=== PATIENT | male | born 1955 | race African-American/Black ===

== ENCOUNTER 2019-03-19 07:47 | Inpatient (IN) | payer MEDICAID ==
[2019-03-19 08:26] LABS: Basophils % (Auto) 0.6 % (0.0-1.8); Eosinophils % (Auto) 0.8 % (0.0-4.3); Hematocrit 40.4 % (35.5-45.6); Hemoglobin 13.7 gm/dl (11.8-15.2); Lymphocytes # (Auto) 1.4 K/mm3 (1.2-5.4); Mean Corpuscular HGB Conc 34 % (32-34); Mean Corpuscular Volume 84 fl (84-94); Monocytes # (Auto) 0.4 K/mm3 (0.0-0.8); Monocytes % (Auto) 7.6 % (0.0-7.3); Platelet Count 244 K/mm3 (140-440); Red Blood Count 4.83 M/mm3 (3.65-5.03); Red Cell Distribution Width 13.7 % (13.2-15.2)
[2019-03-19 08:43] LABS: INR 0.93 (0.87-1.13); Partial Thromboplastin Time 23.1 Sec. (24.2-36.6)
[2019-03-19 08:49] LABS: BUN/Creatinine Ratio 30; Blood Urea Nitrogen 18 mg/dL (9-20); Calcium 9.5 mg/dL (8.4-10.2); Hemolysis Index 12
--- NOTE | 2019-03-19 09:16 | Cat Scan Report ---
CT HEAD WITHOUT CONTRAST INDICATION: neuro deficits <6hrs or sx present upon awakening TECHNIQUE: Axial slices were obtained through the head. Coronal and sagittal reformatted images were obtained. COMPARISON: None available. FINDINGS: There is no intracranial hemorrhage or extra-axial fluid collection. Ventricles, basilar cisterns, an d sulci appear within normal limits for age. There is no mass lesion or midline shift. No acute bryan torial infarct is identified. Bone windows demonstrate no acute osseous abnormality. Paranasal sinuses and mastoid air cells appear clear. TECHNIQUE: All CT scans at this facility use dose modulation, iterative reconstruction, automated ex posure control, weight based dosing, when appropriate, to reduce radiation dose to as low as reasonab ly achievable. IMPRESSION: 1. No acute intracranial abnormality. Signer Name: Carlitos Mata MD Signed: 03/19/2019 9:12 AM Workstation Name: [id number]
--- NOTE | 2019-03-19 09:33 | Emergency Department Report ---
- General Chief complaint: Weakness Stated complaint: RT HAND/LEG NUMBNESS Time Seen by Provider: 03/19/19 09:26 Source: patient, family Mode of arrival: Wheelchair Limitations: Language Barrier - History of Present Illness Initial comments: 63-year-old Dominican male presents to the emergency room complaining of right arm and right leg tingling and numbness and weakness times 1 week. And has a past medical history of diabetes, hypertension, polio that has wheelchair bound patient. Patient reports she is followed by [facility] in [place]. He denies any falls no history of strokes no injuries. MD Complaint: numbness, tingling Onset/Timin -: week(s) Location: [facility], [facility] Consistency: constant - Related Data Home Medications Medication Instructions Recorded Confirmed Last Taken AtorvaSTATin [Lipitor] 20 mg PO QHS 03/19/19 03/19/19 Unknown Gabapentin [Neurontin] 300 mg PO Q8HR 03/19/19 03/19/19 Unknown Ibuprofen [Motrin 800 MG tab] 800 mg PO Q8HR PRN 03/19/19 03/19/19 Unknown Losartan [Cozaar] 50 mg PO QDAY 03/19/19 03/19/19 Unknown Metformin HCl [Glucophage] 500 mg PO BID 03/19/19 03/19/19 Unknown Metoprolol [Lopressor] 25 mg PO DAILY 03/19/19 03/19/19 Unknown Pioglitazone HCl [Actos] 15 mg PO DAILY 03/19/19 03/19/19 Unknown diphenhydrAMINE [Benadryl CAP] 25 mg PO QHS PRN 03/19/19 03/19/19 Unknown glipiZIDE [Glucotrol] 2.5 mg PO QDAY 03/19/19 03/19/19 Unknown hydroCHLOROthiazide [HCTZ] 25 mg PO QDAY 03/19/19 03/19/19 Unknown traMADoL [Ultram] 50 mg PO Q6HR PRN 03/19/19 03/19/19 Unknown Allergies Allergy/AdvReac Type Severity Reaction Status Date / Time No Known Allergies Allergy Verified 03/19/19 11:28 ED Review of Systems ROS: Stated complaint: RT HAND/LEG NUMBNESS Other details as noted in HPI ED Past Medical Hx - Past Medical History Previous Medical History?: Yes Additional medical history: Right leg, Right arm - Surgical History Past Surgical History?: No - Social History Smoking Status: Never Smoker Substance Use Type: None - Medications Home Medications: Home Medications Medication Instructions Recorded Confirmed Last Taken Type AtorvaSTATin [Lipitor] 20 mg PO QHS 03/19/19 03/19/19 Unknown History Gabapentin [Neurontin] 300 mg PO Q8HR 03/19/19 03/19/19 Unknown History Ibuprofen [Motrin 800 MG tab] 800 mg PO Q8HR PRN 03/19/19 03/19/19 Unknown History Losartan [Cozaar] 50 mg PO QDAY 03/19/19 03/19/19 Unknown History Metformin HCl [Glucophage] 500 mg PO BID 03/19/19 03/19/19 Unknown History Metoprolol [Lopressor] 25 mg PO DAILY 03/19/19 03/19/19 Unknown History Pioglitazone HCl [Actos] 15 mg PO DAILY 03/19/19 03/19/19 Unknown History diphenhydrAMINE [Benadryl CAP] 25 mg PO QHS PRN 03/19/19 03/19/19 Unknown History glipiZIDE [Glucotrol] 2.5 mg PO QDAY 03/19/19 03/19/19 Unknown History hydroCHLOROthiazide [HCTZ] 25 mg PO QDAY 03/19/19 03/19/19 Unknown History traMADoL [Ultram] 50 mg PO Q6HR PRN 03/19/19 03/19/19 Unknown History ED Physical Exam - General Limitations: Language Barrier - Assessment Assessment Interval: 7-10 Days - Level of Consciousness 1a. Level of Consciousness: alert/keenly responsive - LOC Questions 1b. LOC Questions: answers both correctly - Best Gaze 2. Best Gaze: normal - Visual 3. Visual: no visual loss - Motor Arm 5a. Motor Arm Left: no drift 5b. Motor Arm Right: no drift - Motor Leg 6a. Motor Leg Left: no drift 6b. Motor Leg Right: no drift - Limb Ataxia 7. Limb Ataxia: absent - Sensory 8. Sensory: normal - Best Language 9. Best Language: no aphasia - Dysarthria 10. Dysarthria: normal - Extinction and Inattention 11. Extinction/Inattention: no abnormality ED Course Vital Signs 03/19/19 03/19/19 03/19/19 07:54 08:25 08:30 Temperature 97.7 F Pulse Rate 83 77 84 Respiratory 16 10 L 15 Rate Blood Pressure 172/108 138/90 Blood Pressure [Left] O2 Sat by Pulse 97 Oximetry 03/19/19 03/19/19 03/19/19 08:45 09:00 09:15 Temperature Pulse Rate 75 72 72 Respiratory 12 11 L 14 Rate Blood Pressure 126/67 124/57 114/65 Blood Pressure [Left] O2 Sat by Pulse 93 Oximetry 03/19/19 03/19/19 03/19/19 09:30 09:46 09:52 Temperature 98 F Pulse Rate 72 73 79 Respiratory 9 L 14 20 Rate Blood Pressure 111/63 Blood Pressure 138/90 [Left] O2 Sat by Pulse 94 100 98 Oximetry 03/19/19 03/19/19 03/19/19 10:00 10:07 10:16 Temperature Pulse Rate 73 77 Respiratory 12 20 12 Rate Blood Pressure 111/63 111/63 Blood Pressure [Left] O2 Sat by Pulse 99 100 Oximetry ED Medical Decision Making - Lab Data Result diagrams: 03/20/19 07:13 03/20/19 07:13 - Radiology Data Radiology results: report reviewed Patient: SHRUTHI POOL MR#: [id number] : 1955 Acct:[id number] Age/Sex: 63 / M ADM Date: 03/19/19 Loc: ED Attending Dr: Ordering Physician: DANIEL THACKER MD Date of Service: 03/19/19 Procedure(s): CT head/brain wo con Accession Number(s): [id number] cc: DNAIEL THACKER MD CT HEAD WITHOUT CONTRAST INDICATION: neuro deficits <6hrs or sx present upon awakening TECHNIQUE: Axial slices were obtained through the head. Coronal and sagittal reformatted images were obtained. COMPARISON: None available. FINDINGS: There is no intracranial hemorrhage or extra-axial fluid collection. Ventricles, basilar cisterns, and sulci appear within normal limits for age. There is no mass lesion or midline shift. No acute territorial infarct is identified. Bone windows demonstrate no acute osseous abnormality. Paranasal sinuses and mastoid air cells appear clear. TECHNIQUE: All CT scans at this facility use dose modulation, iterative dawna nstruction, automated exposure control, weight based dosing, when appropriate, to reduce radiation dose to as low as reasonably achievable. IMPRESSION: 1. No acute intracranial abnormality. Signer Name: Carlitos Mata MD Signed: 03/19/2019 9:12 AM Workstation Name: [id number] Transcribed By: SS Dictated By: Carlitos Mata MD Electronically Authenticated By: Carlitos Mata MD Signed Date/Time: 03/19/19911 DD/ 1 TD/TT: - Medical Decision Making 63-year-old Dominican male presents to the emergency room complaining of right arm and right leg tingling and numbness and weakness times 1 week. And has a past medical history of diabetes, hypertension, polio that has wheelchair bound patient. Patient reports she is followed by [facility] in [place]. He denies any falls no history of strokes no injuries. Critical care attestation.: If time is entered above; I have spent that time in minutes in the direct care of this critically ill patient, excluding procedure time. ED Disposition Clinical Impression: Hypokalemia Peripheral neuropathy Qualifiers: Peripheral neuropathy type: polyneuropathy, unspecified Qualified Code(s): G62.9 - Polyneuropathy, unspecified Type 2 diabetes mellitus Qualifiers: Diabetes mellitus prison insulin use: without marine oil terminal superintendent use Hypertension Qualifiers: Hypertension type: essential hypertension Qualified Code(s): I10 - Essential (primary) hypertension Disposition: OP ADMIT IP TO THIS HOSP Is pt being admited?: Yes Does the pt Need Aspirin: Yes Condition: Stable
--- NOTE | 2019-03-19 11:22 | History and Physical Report ---
History of Present Illness Date of examination: 03/19/19 Date of admission: 03/19/19 11:06 Chief complaint: Right upper extremity weakness for 7 days History of present illness: 63-year-old Irish male with past medical history significant for hypertension type 2 diabetes peripheral neuropathy and polio in right lower extremity comes in for right upper extremity weakness of one week duration. Weakness was mild and patient thought it'll improve--hence did not seek medical Attention. Patient continues to have the right upper extremity weakness and numbness sensation. Patient is wheelchair bound because of his right lower extremity weakness from polio. No syncope or seizures. Past Medical History Previous Medical History?: Yes Additional medical history: Right leg, Right arm Surgical History Past Surgical History?: No Social History Smoking Status: Never Smoker Substance Use Type: None Family history HTN Review of Systems ROS: Stated complaint: RT HAND/LEG NUMBNESS Other details as noted in HPI Medications and Allergies Allergies Allergy/AdvReac Type Severity Reaction Status Date / Time No Known Allergies Allergy Verified 03/19/19 11:28 Home Medications Medication Instructions Recorded Confirmed Last Taken Type AtorvaSTATin [Lipitor] 20 mg PO QHS 03/19/19 03/19/19 Unknown History Gabapentin [Neurontin] 300 mg PO Q8HR 03/19/19 03/19/19 Unknown History Ibuprofen [Motrin 800 MG tab] 800 mg PO Q8HR PRN 03/19/19 03/19/19 Unknown History Losartan [Cozaar] 50 mg PO QDAY 03/19/19 03/19/19 Unknown History Metformin HCl [Glucophage] 500 mg PO BID 03/19/19 03/19/19 Unknown History Metoprolol [Lopressor] 25 mg PO DAILY 03/19/19 03/19/19 Unknown History Pioglitazone HCl [Actos] 15 mg PO DAILY 03/19/19 03/19/19 Unknown History diphenhydrAMINE [Benadryl CAP] 25 mg PO QHS PRN 03/19/19 03/19/19 Unknown History glipiZIDE [Glucotrol] 2.5 mg PO QDAY 03/19/19 03/19/19 Unknown History hydroCHLOROthiazide [HCTZ] 25 mg PO QDAY 03/19/19 03/19/19 Unknown History traMADoL [Ultram] 50 mg PO Q6HR PRN 03/19/19 03/19/19 Unknown History Exam - Constitutional Vitals: Temp Pulse Resp BP Pulse Ox 98 F 73 20 111/63 99 03/19/19 09:52 03/19/19 10:00 03/19/19 10:07 03/19/19 10:00 03/19/19 10:00 General appearance: Present: no acute distress, well-nourished - EENT Eyes: Present: PERRL ENT: hearing intact, clear oral mucosa - Neck Neck: Present: supple, normal ROM - Respiratory Respiratory effort: normal Respiratory: bilateral: CTA - Cardiovascular Heart rate: 78 Rhythm: regular Heart Sounds: Present: S1 & S2. Absent: rub, click - Extremities Extremities: no ischemia, pulses intact, pulses symmetrical, No edema Extremity abnormal: other (right upper extremity and right lower extremity weakness present) Peripheral Pulses: within normal limits - Abdominal General gastrointestinal: Present: soft, non-tender, non-distended, normal bowel sounds Male genitourinary: Present: normal - Rectal Rectal Exam: deferred - Integumentary Integumentary: Present: clear, warm, dry - Musculoskeletal Musculoskeletal: strength equal bilaterally, right sided weakness (right upper extremity--3/5 power, right lower extremity 1 #5 per hour) - Psychiatric Psychiatric: appropriate mood/affect, intact judgment & insight - Neurologic Neurologic: CNII-XII intact, focal deficits (right upper extremity-3/5 power, right lower extremity-1/5 power) Results - Labs CBC & Chem 7: 03/19/19 08:10 03/19/19 08:10 Labs: Laboratory Last Values WBC 4.9 K/mm3 (4.5-11.0) 03/19/19 08:10 RBC 4.83 M/mm3 (3.65-5.03) 03/19/19 08:10 Hgb 13.7 gm/dl (11.8-15.2) 03/19/19 08:10 Hct 40.4 % (35.5-45.6) 03/19/19 08:10 MCV 84 fl (84-94) 03/19/19 08:10 MCH 28 pg (28-32) 03/19/19 08:10 MCHC 34 % (32-34) 03/19/19 08:10 RDW 13.7 % (13.2-15.2) 03/19/19 08:10 Plt Count 244 K/mm3 (140-440) 03/19/19 08:10 Lymph % (Auto) 29.0 % (13.4-35.0) 03/19/19 08:10 [place] % (Auto) 7.6 % (0.0-7.3) H 03/19/19 08:10 Eos % (Auto) 0.8 % (0.0-4.3) 03/19/19 08:10 Baso % (Auto) 0.6 % (0.0-1.8) 03/19/19 08:10 Lymph # 1.4 K/mm3 (1.2-5.4) 03/19/19 08:10 Orange # 0.4 K/mm3 (0.0-0.8) 03/19/19 08:10 Eos # 0.0 K/mm3 (0.0-0.4) 03/19/19 08:10 Baso # 0.0 K/mm3 (0.0-0.1) 03/19/19 08:10 Seg Neutrophils % 62.0 % (40.0-70.0) 03/19/19 08:10 Seg Neutrophils # 3.1 K/mm3 (1.8-7.7) 03/19/19 08:10 PT 12.4 Sec. (12.2-14.9) 03/19/19 08:10 INR 0.93 (0.87-1.13) 03/19/19 08:10 APTT 23.1 Sec. (24.2-36.6) L 03/19/19 08:10 Thrombin Time 16.0 Sec. (15.1-19.6) 03/19/19 08:10 Sodium 136 mmol/L (137-145) L 03/19/19 08:10 Potassium 3.5 mmol/L (3.6-5.0) L 03/19/19 08:10 Chloride 96.1 mmol/L (98-107) L 03/19/19 08:10 Carbon Dioxide 25 mmol/L (22-30) 03/19/19 08:10 Anion Gap 18 mmol/L 03/19/19 08:10 BUN 18 mg/dL (9-20) 03/19/19 08:10 Creatinine 0.6 mg/dL (0.8-1.5) L 03/19/19 08:10 Estimated GFR > 60 ml/min 03/19/19 08:10 BUN/Creatinine Ratio 30 % 03/19/19 08:10 Glucose 166 mg/dL (75-100) H 03/19/19 08:10 POC Glucose 135 (70-105) H 03/19/19 08:53 Calcium 9.5 mg/dL (8.4-10.2) 03/19/19 08:10 Troponin T < 0.010 ng/mL (0.00-0.029) 03/19/19 08:10 Short CBC 03/19/19 Range/Units 08:10 WBC 4.9 (4.5-11.0) K/mm3 Hgb 13.7 (11.8-15.2) gm/dl Hct 40.4 (35.5-45.6) % Plt Count 244 (140-440) K/mm3 BMP 03/19/19 08:10 Sodium 136 L Potassium 3.5 L Chloride 96.1 L Carbon Dioxide 25 BUN 18 Creatinine 0.6 L Glucose 166 H Calcium 9.5 Cardiac Enzymes 03/19/19 Range/Units 08:10 Troponin T < 0.010 (0.00-0.029) ng/mL - Imaging and Cardiology EKG: report reviewed CT Scan - head: report reviewed (no acute findings) Assessment and Plan Advance Directives: Yes (full code) VTE prophylaxis?: Chemical Plan of care discussed with patient/family: Yes - Patient Problems (1) Acute CVA (cerebrovascular accident) Current Visit: Yes Status: Acute Plan to address problem: With right hemiparesis CVA workup Including MRI carotid duplex scan and echocardiogram. Neurology consult requested (2) Hypokalemia Current Visit: Yes Status: Acute Plan to address problem: Discontinue hydrochlorothiazide Potassium supplemented (3) Hyponatremia Current Visit: Yes Status: Acute Plan to address problem: Mild Discontinue hydrochlorothiazide (4) Hypertension Current Visit: Yes Status: Chronic Qualifiers: Hypertension type: essential hypertension Qualified Code(s): I10 - Essential (primary) hypertension Plan to address problem: Continue metoprolol and losartan (5) Hyperlipidemia Current Visit: Yes Status: Chronic Qualifiers: Hyperlipidemia type: mixed hyperlipidemia Qualified Code(s): E78.2 - Mixed hyperlipidemia Plan to address problem: Continue her atorvastatin 20 mg by mouth daily (6) Type 2 diabetes mellitus Current Visit: Yes Status: Chronic Qualifiers: Diabetes mellitus terminal block assembler insulin use: without skilled nursing use Plan to address problem: Continue glipizide pioglitazone and metformin Also check A1c Coverage with sliding scale insulin (7) Peripheral neuropathy Current Visit: Yes Status: Chronic Qualifiers: Peripheral neuropathy type: polyneuropathy, unspecified Qualified Code(s): G62.9 - Polyneuropathy, unspecified Plan to address problem: Continue gabapentin 300 mg every 8 hours (8) DVT prophylaxis Current Visit: Yes Status: Acute Plan to address problem: On heparin and GI prophylaxis
[2019-03-19] MEDS ORDERED: traMADol 50 MG TAB PO PRN (11:23)
[2019-03-19] MEDS ORDERED: IBUPROFEN 800 MG TAB PO PRN (11:23)
[2019-03-19] MEDS ORDERED: ONDANSETRON 4 MG/2 ML INJ IV PRN ×2 (11:30→11:38)
[2019-03-19] MEDS ORDERED: METFORMIN HCL 500 MG PO SCH (11:30)
[2019-03-19] MEDS ORDERED: PIOGLITAZONE HCL 15 MG PO SCH (11:30)
[2019-03-19] MEDS: INSULIN LISPRO 100 UNIT/ML SUB-Q SCH ×3 (11:30→22:18)
[2019-03-19] MEDS ORDERED: ACETAMINOPHEN 325 MG TAB PO PRN ×2 (11:30→11:38)
[2019-03-19] MEDS ORDERED: METOCLOPRAMIDE 10 MG TAB PO PRN ×2 (11:34→11:38)
[2019-03-19] MEDS ORDERED: HYDROmorphone 1 MG/1 ML INJ IV PRN (11:34)
[2019-03-19] MEDS ORDERED: oxyCODONE /ACETAMINOPHEN 5-325MG TAB PO PRN (11:34)
[2019-03-19] MEDS ORDERED: MAGNESIUM HYDROXIDE (MOM) ORAL LIQD UDC PO PRN (11:38)
[2019-03-19] MEDS ORDERED: PROMETHAZINE 25 MG RECT SUPP PR PRN (11:38)
[2019-03-19] MEDS ORDERED: hydroCHLOROthiazide 25 MG TAB PO SCH (12:00)
[2019-03-19] MEDS: GABAPENTIN 300 MG CAP PO SCH ×2 (15:45→21:35)
[2019-03-19] MEDS: LOSARTAN 50 MG TAB PO SCH (15:45)
[2019-03-19] MEDS: METOPROLOL TARTRATE 25 MG TAB PO SCH (15:46)
[2019-03-19] MEDS: FAMOTIDINE 20 MG TAB PO SCH ×2 (15:46→21:35)
[2019-03-19] MEDS: metFORMIN 500 MG TAB PO SCH (18:04)
[2019-03-19] MEDS: SODIUM CHLORIDE 0.9% 1000 ML 1,000 ML IV SCH (18:38)
--- NOTE | 2019-03-19 20:02 | Progress Note ---
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 Objective - Vital Sign Vital Signs - 12hr 03/19/19 03/19/19 03/19/19 08:25 08:30 08:45 Temperature Pulse Rate 77 84 75 Respiratory 10 L 15 12 Rate Blood Pressure 138/90 126/67 Blood Pressure [Left] O2 Sat by Pulse Oximetry 03/19/19 03/19/19 03/19/19 09:00 09:15 09:30 Temperature Pulse Rate 72 72 72 Respiratory 11 L 14 9 L Rate Blood Pressure 124/57 114/65 111/63 Blood Pressure [Left] O2 Sat by Pulse 93 94 Oximetry 03/19/19 03/19/19 03/19/19 09:46 09:52 10:00 Temperature 98 F Pulse Rate 73 79 73 Respiratory 14 20 12 Rate Blood Pressure 111/63 Blood Pressure 138/90 [Left] O2 Sat by Pulse 100 98 99 Oximetry 03/19/19 03/19/19 03/19/19 10:07 10:16 12:28 Temperature 98.6 F Pulse Rate 77 77 Respiratory 20 12 19 Rate Blood Pressure 111/63 140/82 Blood Pressure [Left] O2 Sat by Pulse 100 99 Oximetry 03/19/19 03/19/19 03/19/19 15:44 15:45 17:00 Temperature 98.4 F Pulse Rate 82 71 Respiratory 20 Rate Blood Pressure 118/70 118/70 103/68 Blood Pressure [Left] O2 Sat by Pulse 96 Oximetry - Laboratory Findings CBC and BMP: 03/19/19 08:10 03/19/19 08:10 Abnormal Lab Findings: Abnormal Labs 03/19/19 03/19/19 03/19/19 08:10 08:10 08:10 [place] % (Auto) 7.6 H APTT 23.1 L Sodium 136 L Potassium 3.5 L Chloride 96.1 L Creatinine 0.6 L Glucose 166 H POC Glucose Hemoglobin A1c 03/19/19 03/19/19 03/19/19 08:10 08:53 17:20 [place] % (Auto) APTT Sodium Potassium Chloride Creatinine Glucose POC Glucose 135 H 126 H Hemoglobin A1c 7.4 H
[2019-03-19] MEDS ORDERED: diphenhydrAMINE 25 MG CAP PO PRN (22:00)
--- NOTE | 2019-03-19 22:59 | Consultation ---
HISTORY OF PRESENT ILLNESS: This is a 63-year-old Urdu who presents to the Emergency Room complaining of progressive bilateral hand and arm weakness, which has been developing over the last 3 weeks. Has a prior history of polio involving his right leg. He does admit to having more trouble walking over the last several months, but this has been a slow gradual process. The problem with his arm weakness is more substantial and recent onset. He denies having any allergies. He is a diabetic. When he presented to the Emergency Room, his blood pressure was 172/108. His glucose is 166. His hematocrit was normal. A CT scan was reviewed by me. I did not see any abnormalities on it at all. PHYSICAL EXAMINATION: VITAL SIGNS: On my examination, his blood pressure is 170/110, pulse rate 80, respirations 18. NEUROLOGIC: Cranial nerves 2-12 are intact. Reflexes are absent. Sensory examination hypesthesia C5-C6. He has a weakness in the right leg and loss of reflexes. He has slowness of movement of the hands on closing and opening. He has full ocular movements. He has symmetrical face. The patient's neck is supple. Ocular movements are full. He does not have any speech difficulty. Certainly no dysarthria, no evidence to suggest any light Guillain-[place]. IMPRESSION: Curiously, this patient has a superimposed history of polio. It would be worthwhile getting an MRI scan of the spine and a CT as well. I do not think this represents a stroke. It is curious that he has bilateral segmental motor and sensory loss superimposed on a history of polio and it is quite true historically that polio is still an evident illness in [place] even until recent history, so I have no reason to doubt this history of him having polio. Workup will be completed. JOB# [id number] PRADEEP/NTS
[2019-03-20] MEDS ORDERED: POTASSIUM CHLORIDE ER 20 MEQ TAB PO ONE (04:26)
[2019-03-20] MEDS: GABAPENTIN 300 MG CAP PO SCH ×2 (06:07→14:04)
[2019-03-20] MEDS: SODIUM CHLORIDE 0.9% 1000 ML 1,000 ML IV SCH (06:10)
[2019-03-20] MEDS: INSULIN LISPRO 100 UNIT/ML SUB-Q SCH ×4 (07:30→22:40)
[2019-03-20 07:49] LABS: Basophils % (Auto) 0.3 % (0.0-1.8); Eosinophils % (Auto) 0.6 % (0.0-4.3); Hematocrit 38.1 % (35.5-45.6); Hemoglobin 12.8 gm/dl (11.8-15.2); Lymphocytes # (Auto) 1.7 K/mm3 (1.2-5.4); Lymphocytes % (Auto) 30.1 % (13.4-35.0); Mean Corpuscular HGB Conc 34 % (32-34); Mean Corpuscular Volume 83 fl (84-94); Monocytes # (Auto) 0.5 K/mm3 (0.0-0.8); Monocytes % (Auto) 8.8 % (0.0-7.3); Platelet Count 214 K/mm3 (140-440); Red Blood Count 4.57 M/mm3 (3.65-5.03); Red Cell Distribution Width 13.6 % (13.2-15.2)
[2019-03-20 08:13] LABS: Alanine Aminotransferase 19 units/L (7-56); Albumin 3.7 g/dL (3.9-5); BUN/Creatinine Ratio 34; Blood Urea Nitrogen 17 mg/dL (9-20); HDL Cholesterol 46 mg/dL (40-59); Hemolysis Index 13; LDL Cholesterol,Direct 72 mg/dL (50-130)
[2019-03-20] MEDS: PIOGLITAZONE 15 MG TAB PO SCH (08:44)
[2019-03-20] MEDS: metFORMIN 500 MG TAB PO SCH ×2 (08:44→17:33)
[2019-03-20] MEDS: LOSARTAN 50 MG TAB PO SCH (10:36)
[2019-03-20] MEDS: METOPROLOL TARTRATE 25 MG TAB PO SCH (10:36)
[2019-03-20] MEDS: FAMOTIDINE 20 MG TAB PO SCH ×2 (10:36→21:18)
--- NOTE | 2019-03-20 11:29 | Progress Note ---
Subjective Date of service: 03/20/19 Interval history: went over all the klabs and reviewed the results of the tesing so far this could be diabetic ranverse nyeklititis but more likley focal disease in the spinal cord... blood sugars are not that high I have ordered the approriate imaging studies Objective - Vital Sign Vital Signs - 12hr 03/20/19 03/20/19 06:11 10:36 Temperature 97.6 F Pulse Rate 70 79 Respiratory 18 Rate Blood Pressure 120/66 142/92 O2 Sat by Pulse 97 Oximetry - Laboratory Findings CBC and BMP: 03/20/19 07:13 03/20/19 07:13 Abnormal Lab Findings: Abnormal Labs 03/19/19 03/19/19 03/19/19 08:10 08:10 08:10 MCV [place] % (Auto) 7.6 H APTT 23.1 L Sodium 136 L Potassium 3.5 L Chloride 96.1 L Carbon Dioxide Creatinine 0.6 L Glucose 166 H POC Glucose Hemoglobin A1c Total Protein Albumin 03/19/19 03/19/19 03/19/19 08:10 08:53 17:20 MCV [place] % (Auto) APTT Sodium Potassium Chloride Carbon Dioxide Creatinine Glucose POC Glucose 135 H 126 H Hemoglobin A1c 7.4 H Total Protein Albumin 03/19/19 03/20/19 03/20/19 22:16 07:13 07:13 MCV 83 L [place] % (Auto) 8.8 H APTT Sodium Potassium Chloride Carbon Dioxide 21 L Creatinine 0.5 L Glucose 111 H POC Glucose 133 H Hemoglobin A1c Total Protein 6.0 L Albumin 3.7 L
[2019-03-20] MEDS ORDERED: PNEUMOCOCCAL 23 Valent 0.5 ML VIAL IM ONE (12:00)
--- NOTE | 2019-03-20 12:51 | XRay Report ---
CERVICAL SPINE HISTORY: Arm weakness COMPARISON: None. TECHNIQUE: 5 view(s) of the cervical spine obtained. FINDINGS: Vertebrae: Normal alignment. No displaced fracture or significant abnormality. Disc Spaces:Moderate multilevel degenerative disc disease, most prominent at C5-6 where there is an a ssociated anterior osteophyte. Facet Joints:Multilevel uncovertebral and facet hypertrophy most prominent at C4-5 and C5-6. Prevertebral Soft Tissues:No significant abnormality. Additional findings: Heterotopic ossifications are noted along the posterior neck. IMPRESSION: 1. Moderate multilevel cervical spondylosis. Signer Name: Daisy Gaines MD Signed: 03/20/2019 12:47 PM Workstation Name: [id number]
--- NOTE | 2019-03-20 14:38 | Progress Note ---
Assessment and Plan Assessment and plan: Right sided weakness To r/o stroke he has history of polio with weakness both lower ext CVA workup Including MRI carotid duplex scan and echocardiogram. Neurology consult requested - he was evaluate y Dr. Borja Hypokalemia Discontinue hydrochlorothiazide Potassium supplemented Hyponatremia Mild Discontinued hydrochlorothiazide Hypertension Continue metoprolol and losartan Hyperlipidemia Continue her atorvastatin 20 mg by mouth daily Type 2 diabetes mellitus Continue glipizide pioglitazone and metformin Also check A1c Coverage with sliding scale insulin Peripheral neuropathy Continue gabapentin 300 mg every 8 hours DVT prophylaxis On heparin and GI prophylaxis History Interval history: right leg weaker than baseline patient has history of polio Hospitalist Physical - Physical exam Narrative exam: Gen: Not in acute distress, lying in bed,malnourished HEENT: Normocephalic, atraumatic Neck: supple, no JVD Heart: S1 and S2 reg, no murmurs, rubs or gallop Lungs: Clear, no crackles Abd: soft, non tender, non distended, normal BS, Ext: Bilateral lower ext weakness(history of polio), No edema, no clubbing, no cyanosis Neuro: Awake, alert, oriented X 3, No focal neurological signs - Constitutional Vitals: Temp Pulse Resp BP Pulse Ox 97.6 F 74 16 115/67 98 03/20/19 12:40 03/20/19 12:40 03/20/19 12:40 03/20/19 12:40 03/20/19 12:40 General appearance: Present: no acute distress, well-nourished Results - Labs CBC & Chem 7: 03/20/19 07:13 03/20/19 07:13 Labs: Laboratory Last Values WBC 5.5 K/mm3 (4.5-11.0) 03/20/19 07:13 RBC 4.57 M/mm3 (3.65-5.03) 03/20/19 07:13 Hgb 12.8 gm/dl (11.8-15.2) 03/20/19 07:13 Hct 38.1 % (35.5-45.6) 03/20/19 07:13 MCV 83 fl (84-94) L 03/20/19 07:13 MCH 28 pg (28-32) 03/20/19 07:13 MCHC 34 % (32-34) 03/20/19 07:13 RDW 13.6 % (13.2-15.2) 03/20/19 07:13 Plt Count 214 K/mm3 (140-440) 03/20/19 07:13 Lymph % (Auto) 30.1 % (13.4-35.0) 03/20/19 07:13 [place] % (Auto) 8.8 % (0.0-7.3) H 03/20/19 07:13 Eos % (Auto) 0.6 % (0.0-4.3) 03/20/19 07:13 Baso % (Auto) 0.3 % (0.0-1.8) 03/20/19 07:13 Lymph # 1.7 K/mm3 (1.2-5.4) 03/20/19 07:13 Russell # 0.5 K/mm3 (0.0-0.8) 03/20/19 07:13 Eos # 0.0 K/mm3 (0.0-0.4) 03/20/19 07:13 Baso # 0.0 K/mm3 (0.0-0.1) 03/20/19 07:13 Seg Neutrophils % 60.2 % (40.0-70.0) 03/20/19 07:13 Seg Neutrophils # 3.3 K/mm3 (1.8-7.7) 03/20/19 07:13 PT 12.4 Sec. (12.2-14.9) 03/19/19 08:10 INR 0.93 (0.87-1.13) 03/19/19 08:10 APTT 23.1 Sec. (24.2-36.6) L 03/19/19 08:10 Thrombin Time 16.0 Sec. (15.1-19.6) 03/19/19 08:10 Sodium 139 mmol/L (137-145) 03/20/19 07:13 Potassium 3.6 mmol/L (3.6-5.0) 03/20/19 07:13 Chloride 103.6 mmol/L (98-107) 03/20/19 07:13 Carbon Dioxide 21 mmol/L (22-30) L 03/20/19 07:13 Anion Gap 18 mmol/L 03/20/19 07:13 BUN 17 mg/dL (9-20) 03/20/19 07:13 Creatinine 0.5 mg/dL (0.8-1.5) L 03/20/19 07:13 Estimated GFR > 60 ml/min 03/20/19 07:13 BUN/Creatinine Ratio 34 % 03/20/19 07:13 Glucose 111 mg/dL (75-100) H 03/20/19 07:13 POC Glucose 99 (70-105) 03/20/19 12:51 Hemoglobin A1c 7.4 % (4-6) H 03/19/19 08:10 Calcium 9.0 mg/dL (8.4-10.2) 03/20/19 07:13 Total Bilirubin 0.50 mg/dL (0.1-1.2) 03/20/19 07:13 AST 19 units/L (5-40) 03/20/19 07:13 ALT 19 units/L (7-56) 03/20/19 07:13 Alkaline Phosphatase 60 units/L (35-129) 03/20/19 07:13 Troponin T < 0.010 ng/mL (0.00-0.029) 03/19/19 08:10 Total Protein 6.0 g/dL (6.3-8.2) L 03/20/19 07:13 Albumin 3.7 g/dL (3.9-5) L 03/20/19 07:13 Albumin/Globulin Ratio 1.6 % 03/20/19 07:13 Triglycerides 99 mg/dL (2-149) 03/20/19 07:13 Cholesterol 120 mg/dL (50-199) 03/20/19 07:13 LDL Cholesterol Direct 72 mg/dL (50-130) 03/20/19 07:13 HDL Cholesterol 46 mg/dL (40-59) 03/20/19 07:13 Cholesterol/HDL Ratio 2.60 % 03/20/19 07:13 Active Medications - Current Medications Current Medications: Generic Name Dose Route Start Last Admin Trade Name Freq PRN Reason Stop Dose Admin Acetaminophen 650 mg 03/19/19 11:30 Tylenol PO Q4H PRN Fever >100.5/HOFFMANN Atorvastatin Calcium 20 mg 03/19/19 22:00 03/19/19 21:35 Lipitor PO 20 mg QHS JAYDON Administration Bisacodyl 10 mg 03/19/19 11:38 Dulcolax AR QDAY PRN Constipation Diphenhydramine HCl 25 mg 03/19/19 22:00 Benadryl PO QHS PRN Allergic Reaction Famotidine 20 mg 03/19/19 12:00 03/20/19 10:36 Pepcid PO 20 mg BID JAYDON Administration Gabapentin 300 mg 03/19/19 14:00 03/20/19 14:04 Gabapentin PO 300 mg Q8HR JAYDON Administration Hydromorphone HCl 0.5 mg 03/19/19 11:34 Dilaudid IV Q3H PRN Pain , Severe (7-10) - if NPO Ibuprofen 800 mg 03/19/19 11:23 03/20/19 10:41 Ibuprofen PO 800 mg Q8H PRN Administration Pain , Mild (1-3) Insulin Human Lispro 0 unit 03/19/19 11:30 03/20/19 11:30 Humalog SUB-Q Not Given ACHS [facility] Protocol Losartan Potassium 50 mg 03/19/19 12:00 03/20/19 10:36 Cozaar PO 50 mg QDAY JAYDON Administration Magnesium Hydroxide 30 ml 03/19/19 11:38 Milk Of Magnesia PO Q4H PRN Constipation Metformin HCl 500 mg 03/19/19 17:00 03/20/19 08:44 Glucophage PO 500 mg BIDDIAB JAYDON Administration Metoclopramide HCl 10 mg 03/19/19 11:38 Reglan PO Q6H PRN Nausea And Vomiting Metoprolol Tartrate 25 mg 03/19/19 12:00 03/20/19 10:36 Metoprolol PO 25 mg DAILY JAYDON Administration Ondansetron HCl 4 mg 03/19/19 11:30 Zofran IV Q8H PRN Nausea And Vomiting Oxycodone/Acetaminophen 1 tab 03/19/19 11:34 Percocet 5/325 PO Q6H PRN Pain, Severe (7-10) Pioglitazone HCl 15 mg 03/20/19 08:00 03/20/19 08:44 Actos PO 15 mg QDDIAB JAYDON Administration Promethazine HCl 25 mg 03/19/19 11:38 Phenergan AR Q6H PRN Nausea And Vomiting Sodium Chloride 10 ml 03/19/19 22:00 03/20/19 10:37 Sodium Chloride Flush Syringe 10 Ml IV 10 ml BID JAYDON Administration Sodium Chloride 10 ml 03/19/19 11:30 Sodium Chloride Flush Syringe 10 Ml IV PRN PRN LINE FLUSH Sodium Chloride 10 ml 03/19/19 11:38 Sodium Chloride Flush Syringe 10 Ml IV PRN PRN LINE FLUSH Tramadol HCl 50 mg 03/19/19 11:23 Ultram PO Q6H PRN PAIN, MODERATE (4-6) Nutrition/Malnutrition Assess - Dietary Evaluation Nutrition/Malnutrition Findings: Nutrition Notes Start: 03/20/19 12:08 Freq: Status: Active Protocol: Document 03/20/19 12:08 LM (Rec: 03/20/19 12:34 LM [id number]) Nutrition Notes Need for Assessment generated from: MD Order,Education Current Diagnosis Diabetes,Hypertension Other Pertinent Diagnosis Hx of polio RLE, acute CVA, RUE weakness Labs/Tests BG 111 Cr 0.5 Pertinent Medications Metformin Height 5 ft 5 in Weight 50.5 kg Usual Body Weight 53.18 kg [place] Body Weight (kg) 61.81 BMI 18.5 Weight change and time frame 5% wt loss in 2 weeks Subjective/Other Information MD consult for CVA diet education. Pt stated that he does not eat "too much". Pt stated he has lost 4 lb in 2 weeks but was unaware of why. Unsure if pt's weakness is due to hx of Polio or CVA per chart. Gave CVA/low Na diet education to pt as pt also has HTN. Burn Absent Trauma Absent GI Symptoms None Current % PO Fair (50-74%) Interpretation of Weight Loss (severe) >2% in 1 week #1 Nutrition Diagnosis Inadequate oral intake Etiology RUE weakness, CVA vs hx of Polio As Evidenced by Signs and Symptoms 5% wt loss in 2 weeks, BMI of 18.5 Is patient on ventilator? No Is Patient Ambulatory and/or Out of Bed No [facility] 1483.596 Kcal/Kg value to use for calculation 39 Approximate Energy Requirements Using 1970 kcal/Kg Calculation Used for Recommendations Kcal/kg Additional Notes Protein: 51-102g (1-1.2g/kg) Fluid: Nutrition Intervention Change Diet Order: Continue current Teaching Recipient Patient Learning Readiness Good Teaching Methods Discussion,Handout Response to Teaching Verbalize understanding Education Handouts Provided CVA Barriers to Learning No Barriers RD phone number provided Yes Patient aware of follow up options Yes Goal #1 Meet at least 80% of energy and protein needs Anticipated Discharge Needs: Consisten CHO/cardiac Follow-Up By: 03/22/19 Additional Comments F/U for intakes, ONS needs
--- NOTE | 2019-03-20 15:35 | Vascular Lab Report ---
Bilateral Carotid Doppler Ultrasound INDICATION : stroke TECHNIQUE: Grayscale and color Doppler imaging performed through the neck. COMPARISON: None FINDINGS: Right: There is moderate atherosclerotic disease in the bulb. Peak systolic velocity in the CCA is 88 cm/s with end-diastolic velocity of 18 cm/s. Peak systolic velocity in the proximal ICA is 100 cm/ s with end-diastolic velocity of 16 cm/s. ICA to CCA ratio is less than 2. There is antegrade flow i n the ECA and the vertebral artery. Left: There is no significant atherosclerotic disease. Peak systolic velocity in the CCA is 106 cm/s with end-diastolic velocity of 20 cm/s. Peak systolic velocity in the proximal ICA is 88 cm/s with en d-diastolic velocity of 24 cm/s. ICA to CCA ratio is less than 2. There is antegrade flow in the ECA and the vertebral artery. IMPRESSION: No hemodynamically significant stenosis by NASCET criteria. Signer Name: Gerardo Beasley MD Signed: 03/20/2019 3:31 PM Workstation Name: [id number]
[2019-03-21] MEDS: HEPARIN 5,000 UNIT/1 ML VIAL SUB-Q SCH ×4 (00:38→21:39)
[2019-03-21] MEDS: GABAPENTIN 300 MG CAP PO SCH ×4 (00:38→21:39)
[2019-03-21] MEDS: INSULIN LISPRO 100 UNIT/ML SUB-Q SCH ×4 (07:30→21:40)
[2019-03-21] MEDS: PIOGLITAZONE 15 MG TAB PO SCH (08:00)
[2019-03-21] MEDS: METOPROLOL TARTRATE 25 MG TAB PO SCH (10:00)
[2019-03-21] MEDS: FAMOTIDINE 20 MG TAB PO SCH ×2 (10:00→21:39)
[2019-03-21] MEDS: metFORMIN 500 MG TAB PO SCH ×2 (10:00→17:16)
[2019-03-21] MEDS: LOSARTAN 50 MG TAB PO SCH (10:00)
--- NOTE | 2019-03-21 12:02 | Magnetic Resonance Report ---
MRI BRAIN WITHOUT CONTRAST INDICATION / CLINICAL INFORMATION: stroke. TECHNIQUE: Multisequence, multiplanar images were obtained. COMPARISON: CT head dated 03/19/2019 FINDINGS: CEREBRAL and CEREBELLAR HEMISPHERES: No evidence of mass or mass effect. No midline shift. No acute hemorrhage. No diffusion restriction to suggest acute infarct. No extra-axial fluid collection. VENTRICLES: Normal in size and configuration for age. VISUALIZED ORBITS: No significant abnormality. VISUALIZED PARANASAL SINUSES: No significant abnormality. ADDITIONAL FINDINGS: None. IMPRESSION: Unremarkable MR brain. Signer Name: Tom Horan Jr, MD Signed: 03/21/2019 11:57 AM Workstation Name: [id number]
--- NOTE | 2019-03-21 12:12 | Magnetic Resonance Report ---
MRI CERVICAL SPINE WITH AND WITHOUT CONTRAST HISTORY: cord lesion at C5-6. Stroke, weakness. TECHNIQUE: Multiplanar, multiphasic imaging performed before and after 10 cc of MultiHance intraveno usly COMPARISON: Cervical spine films performed 03/20/2019 FINDINGS: Alignment: Normal. Soft tissues: No cord signal abnormality identified. A 1.8 x 1.8 x 2.4 cm enhancing lesion is ident ified posterior to the left thyroid lobe. This may represent an enlarged parathyroid gland. Less like ly this could originate from the posterior left thyroid lobe. Levels: C2-3: Mild disc desiccation and facet arthropathy. Mild right neural foraminal narrowing is estimated at 50%. C3-4: Mild disc desiccation and mild facet arthropathy. No significant neural foraminal or central ca nal narrowing. C4-5: Mild disc desiccation and mild facet arthropathy. A moderate to large left paracentral disc pro trusion is identified which exerts mass effect on the left side of the spinal cord. Moderate central canal narrowing measures 6.3 mm in AP dimension. The T2 and STIR images suggest there may be minimal cord edema at this level. Moderate to severe bilateral neural foraminal narrowing is also suspected a nd estimated at 75%. C5-6: Mild diffuse posterior bulging disc and moderate bilateral uncovertebral spurring. Mild facet a rthropathy. Bilateral neural foraminal narrowing is estimated at 50-75%. C6-7. No significant abnormality with the disc. Mild facet arthropathy. C7-T1: No significant abnormality with the disc. Mild facet arthropathy. IMPRESSION: Moderate to large left paracentral disc protrusion at C4-5 with mass effect on the cord and moderate central canal narrowing as outlined above. High-grade bilateral neural foraminal narrowing is also id entified at this level. Moderate bilateral neural foraminal narrowing at C5-6. 2.4 cm enhancing lesion in the posterior left thyroid lobe or left parathyroid region. Parathyroid ad enoma Please correlate with the patient's clinical presentation. Signer Name: Tom Horan Jr, MD Signed: 03/21/2019 12:08 PM Workstation Name: [id number]
--- NOTE | 2019-03-21 12:36 | Progress Note ---
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 agree with radiology does not need work up for polio ie spinal tap the brain scan is normal Objective - Vital Sign Vital Signs - 12hr 03/21/19 05:50 Temperature 97.5 F L Pulse Rate 62 Respiratory 16 Rate Blood Pressure 126/55 O2 Sat by Pulse 100 Oximetry - Laboratory Findings CBC and BMP: 03/20/19 07:13 03/20/19 07:13 Abnormal Lab Findings: Abnormal Labs 03/19/19 03/19/19 03/19/19 08:10 08:10 08:10 MCV [place] % (Auto) 7.6 H APTT 23.1 L Sodium 136 L Potassium 3.5 L Chloride 96.1 L Carbon Dioxide Creatinine 0.6 L Glucose 166 H POC Glucose Hemoglobin A1c Total Protein Albumin 03/19/19 03/19/19 03/19/19 08:10 08:53 17:20 MCV [place] % (Auto) APTT Sodium Potassium Chloride Carbon Dioxide Creatinine Glucose POC Glucose 135 H 126 H Hemoglobin A1c 7.4 H Total Protein Albumin 03/19/19 03/20/19 03/20/19 22:16 07:13 07:13 MCV 83 L [place] % (Auto) 8.8 H APTT Sodium Potassium Chloride Carbon Dioxide 21 L Creatinine 0.5 L Glucose 111 H POC Glucose 133 H Hemoglobin A1c Total Protein 6.0 L Albumin 3.7 L 03/20/19 03/20/19 03/21/19 08:20 16:28 08:04 MCV [place] % (Auto) APTT Sodium Potassium Chloride Carbon Dioxide Creatinine Glucose POC Glucose 115 H 139 H 112 H Hemoglobin A1c Total Protein Albumin 03/21/19 12:24 MCV [place] % (Auto) APTT Sodium Potassium Chloride Carbon Dioxide Creatinine Glucose POC Glucose 181 H Hemoglobin A1c Total Protein Albumin
--- NOTE | 2019-03-21 15:12 | Progress Note ---
Assessment and Plan /Right sided weakness, new development he has history of polio with weakness both lower ext CVA workup was negative with normal brain MRI Neurology consult requested - he was evaluate y Dr. Borja Cervical MRI showed spinal cord compression at C4-5 level - called [facility] for possible transfer /Left thyroid gland mass - obtain US, consulted Dr Singh /Hypokalemia Discontinue hydrochlorothiazide Potassium supplemented Hyponatremia Mild Discontinued hydrochlorothiazide Hypertension Continue metoprolol and losartan Hyperlipidemia Continue her atorvastatin 20 mg by mouth daily Type 2 diabetes mellitus Continue glipizide pioglitazone and metformin Also check A1c Coverage with sliding scale insulin Peripheral neuropathy Continue gabapentin 300 mg every 8 hours DVT prophylaxis On heparin and GI prophylaxis History Interval history: right leg weaker than baseline patient has history of polio Hospitalist Physical Gen: Not in acute distress, lying in bed,malnourished HEENT: Normocephalic, atraumatic Neck: supple, no JVD Heart: S1 and S2 reg, no murmurs, rubs or gallop Lungs: Clear, no crackles Abd: soft, non tender, non distended, normal BS, Ext: Bilateral lower ext weakness(history of polio), No edema, no clubbing, no cyanosis Neuro: Awake, alert, oriented X 3, No focal neurological signs Subjective Date of service: 03/21/19 Objective - Constitutional Vitals: Vital Signs - 12hr 03/21/19 03/21/19 05:50 12:10 Temperature 97.5 F L 97.9 F Pulse Rate 62 83 Respiratory 16 16 Rate Blood Pressure 126/55 116/70 O2 Sat by Pulse 100 96 Oximetry - Labs CBC & Chem 7: 03/20/19 07:13 03/20/19 07:13 Labs: Abnormal lab results 03/20/19 03/20/19 03/21/19 Range/Units 08:20 16:28 08:04 POC Glucose 115 H 139 H 112 H (70-105) 03/21/19 Range/Units 12:24 POC Glucose 181 H (70-105)
--- NOTE | 2019-03-21 16:43 | Discharge Summary ---
Providers - Providers Date of Admission: 03/19/19 11:06 Date of discharge: 03/21/19 Attending physician: NIALL GIRALDO 03/19/19 11:34 Consult to Physician [CONS] Routine Comment: Consulting Provider: JENNIFER BORJA Physician Instructions: Reason For Exam: CVA 03/19/19 11:38 Consult to Case Management [CONS] Routine Services Needed at Discharge: Home Health Services Notified:: cm Consult to Dietitian/Nutrition [CONS] Routine Physician Instructions: Reason For Exam: Reason for Consult: Nutrition Recommendations Reason for Consult: Diet education Occupational Therapy Evaluate and Treat [CONS] Routine Comment: Reason For Exam: Neuro deficits Physical Therapy Evaluation and Treat [CONS] Routine Comment: Reason For Exam: Neuro deficits 03/21/19 12:41 Consult to Physician [CONS] Routine Comment: Consulting Provider: BLAKE SINGH Physician Instructions: Reason For Exam: thyroid mass Primary care physician: SAMMI HART Hospitalization Condition: Stable Hospital course: Discharge diagnosis and Mx: /Right sided weakness, new development he has history of polio with weakness both lower ext CVA workup was negative with normal brain MRI Neurology consult requested - he was evaluate y Dr. Borja Cervical MRI showed spinal cord compression at C4-5 level - called [facility] for possible transfer, he was accepted by Dr Dandy Menendez at main campus /Left thyroid gland mass - obtain US, consulted Dr Singh /Hypokalemia Discontinue hydrochlorothiazide Potassium supplemented Hyponatremia Mild Discontinued hydrochlorothiazide Hypertension Continue metoprolol and losartan Hyperlipidemia Continue her atorvastatin 20 mg by mouth daily Type 2 diabetes mellitus Continue glipizide pioglitazone and metformin Also check A1c Coverage with sliding scale insulin Peripheral neuropathy Continue gabapentin 300 mg every 8 hours /Moderate malnutrition with BMI 18.5 - has h/o wt loss for last few weeks - nutritional support DVT prophylaxis On heparin and GI prophylaxis Hospitalist Physical Gen: Not in acute distress, lying in bed, malnourished HEENT: Normocephalic, atraumatic Neck: supple, no JVD Heart: S1 and S2 reg, no murmurs, rubs or gallop Lungs: Clear, no crackles Abd: soft, non tender, non distended, normal BS, Ext: Bilateral lower ext weakness(history of polio), No edema, no clubbing, no cyanosis Neuro: Awake, alert, oriented X 3, No focal neurological signs Disposition: [id number]/TX-02 SHRT-TRM GEN HOSP IP Time spent for discharge: 34 minutes Exam - Constitutional Vitals: Temp Pulse Resp BP Pulse Ox 97.9 F 83 16 116/70 96 03/21/19 12:10 03/21/19 12:10 03/21/19 12:10 03/21/19 12:10 03/21/19 12:10 Plan Follow up with: SAMMI HART MD [Primary Care Provider] - 7 Days
[2019-03-21 23:57] VITALS: BP 155/78
== END 2019-03-21 22:05 | disposition short-term general hospital (02) | DRG 92 ==
LOC: ED 07:47 → OBSVTOIN 11:06 → 3A 11:06
PROVIDERS: ADMIT Internal Medicine; ATTEND Internal Medicine
PROC: 3E0234Z Introduction of Serum, Toxoid and Vaccine into Muscle, Percutaneous Approach (ICD-10-PCS; principal; 2019-03-20)
DX: G95.29 Other cord compression (principal); E87.1 Hypo-osmolality and hyponatremia; E44.0 Moderate protein-calorie malnutrition; Z68.1 Body mass index [BMI] 19.9 or less, adult; E07.9 Disorder of thyroid, unspecified; E87.6 Hypokalemia; I10 Essential (primary) hypertension; E11.42 Type 2 diabetes mellitus with diabetic polyneuropathy; G81.91 Hemiplegia, unspecified affecting right dominant side; E78.2 Mixed hyperlipidemia; Z99.3 Dependence on wheelchair; Z82.49 Family history of ischemic heart disease and other diseases of the circulatory system; Z79.899 Other long term (current) drug therapy; Z23 Encounter for immunization
CPT/HCPCS: 36415; 70450; 70551; 72040; 72156; 80048; 80053; 80061; 82962; 83036; 83970; 84443; 84484; 85025; 85610; 85670; 85730; 90732; 93005; 93010; 93306; 93880; 96365; G0378; A9270-GY; A9577; J1644; J7030